=== PATIENT | female | born 1970 | race Caucasian/White ===

== ENCOUNTER 2022-08-17 17:16 | Emergency (ER) | payer MEDICAID ==
[~2022-08-17] VITALS: Ht 167.6 cm; Wt 91.0 kg
[2022-08-17 17:21] VITALS: BP 108/60
== END 2022-08-17 22:19 | disposition left against medical advice (07) ==
LOC: ER 17:16
DX: Z53.21 Procedure and treatment not carried out due to patient leaving prior to being seen by health care provider (principal)